=== PATIENT | male | born 1980 | race Caucasian/White ===

== ENCOUNTER 2021-04-26 09:07 | Emergency (ER) | payer SELFPAY ==
[~2021-04-26] VITALS: Ht 182.9 cm; Wt 87.2 kg
[~2021-04-26 09:07] MED LIST: CYCL10TA19 PO; HYDR-3165 PO; IBUP800T19 PO
[2021-04-26 09:36] VITALS: BP 140/94
[2021-04-26] MEDS ORDERED: TETRACAINE 0.5% OPHTH SOLUTION 4ML BOTTLE. OD ONE (10:00)
[2021-04-26] MEDS ORDERED: FLUORESCEIN 1MG EYE STRIP. OD ONE (10:00)
--- NOTE | 2021-04-26 10:00 | PHYS DOC ---
Past History Past Medical History: No Pertinent History Past Surgical History: No Surgical History Smoking: Greater than 1 pack/day Alcohol Use: Occasionally Drug Use: Marijuana General Adult EDM: Chief Complaint: EYE PROBLEMS HPI: HPI: Patient is a 40-year-old male that presents today with right a eye pain and swelling. Patient states that last night he felt like there was something in his eye, he woke up this morning and his eye was swollen shut with drainage coming out of it. Patient states he does not recall an injury or rubbing his eye or anything like that, patient does not wear glasses or contacts. Review of Systems: Review of Systems: Constitutional: Denies fever or chills Eyes: Right eye swelling and pain HENT: Denies nasal congestion or sore throat Respiratory: Denies cough or shortness of breath Cardiovascular: Denies chest pain or edema GI: Denies abdominal pain, nausea, vomiting, bloody stools or diarrhea : Denies dysuria Musculoskeletal: Denies back pain or joint pain Integument: Denies rash Neurologic: Denies headache, focal weakness or sensory changes Endocrine: Denies polyuria or polydipsia Lymphatic: Denies swollen glands Psychiatric: Denies depression or anxiety Current Medications: Current Meds: Current Medications Medications (Trade) Dose Ordered Sig/Juan Start Time Stop Time Status Last Admin Dose Admin Fluorescein Sodium (Ful-Cassandra 1mg) 1 strip 1X ONCE 04/26/21 10:00 04/26/21 10:01 UNV Tetracaine HCl (Tetracaine) 1 drop 1X ONCE 04/26/21 10:00 04/26/21 10:01 UNV Allergies: Allergies: Allergies Coded Allergies Type Severity Reaction Last Updated Verified No Known Drug Allergies 11/08/13 No Physical Exam: PE: Constitutional: Well developed, well nourished, no acute distress, non-toxic appearance. [] HENT: Normocephalic, atraumatic, bilateral external ears normal, oropharynx moist, no oral exudates, nose normal. [] Eyes: PERRLA, EOMI, conjunctive of the right eye is reddened, lids are swollen, [] Neck: Normal range of motion, no tenderness, supple, no stridor. [] Cardiovascular:Heart rate regular rhythm, no murmur [] Lungs & Thorax: Bilateral breath sounds clear to auscultation [] Abdomen: Bowel sounds normal, soft, no tenderness, no masses, no pulsatile masses. [] Skin: Warm, dry, no erythema, no rash. [] Back: No tenderness, no CVA tenderness. [] Extremities: No tenderness, no cyanosis, no clubbing, ROM intact, no edema. [] Neurologic: Alert and oriented X 3, normal motor function, normal sensory function, no focal deficits noted. [] Psychologic: Affect normal, judgement normal, mood normal. [] EKG: EKG: [] Radiology/Procedures: Radiology/Procedures: Michael lamp exam done, patient's eye eye was anesthetized with tetracaine 0.5% 3 drops, fluorescein was used to enhance the eye, Michael lamp was used to view any concerns, no abrasions noted in the eye. Eyelid was also inspected for any foreign bodies and nothing was seen Heart Score: C/O Chest Pain: N/A Risk Factors: Risk Factors: DM, Current or recent (<one month) smoker, HTN, HLP, family history of CAD, obesity. Risk Scores: Score 0 - 3: 2.5% MACE over next 6 weeks - Discharge Home Score 4 - 6: 20.3% MACE over next 6 weeks - Admit for Clinical Observation Score 7 - 10: 72.7% MACE over next 6 weeks - Early Invasive Strategies Course & Med Decision Making: Course & Med Decision Making Pertinent Labs and Imaging studies reviewed. (See chart for details) We will treat patient with for conjunctivitis patient is agreeable to the plan of care patient instructed to wash all bedding and any washcloths or anything that has contact with his eye on hot water. Patient verbalizes understanding and is acceptable with the plan of care] Millie Disclaimer: Millie Disclaimer: This electronic medical record was generated, in whole or in part, using a voice recognition dictation system. Departure Departure: Impression: Primary Impression: Acute bacterial conjunctivitis of right eye Disposition: HOME / SELF CARE / HOMELESS Condition: STABLE Referrals: PCP,NO (PCP) MAXWELL MCKNIGHT JOHN S DO Patient Instructions: Bacterial Conjunctivitis Additional Instructions: Erythromycin ointment apply a quarter of an inch of ointment into eye 6 times daily for the next 5 days Follow-up with your primary care physician or plant director given in the referral section Scripts Erythromycin Base (Erythromycin) 1 Gm Oint...g. 0.5 JANESSA OD 6XDAY for conjuctivitis for 5 Days, #1 MISC Prov: ANANDA SOUSA UNLOADING CHECKER 04/26/21 ANANDA SOUSA UNLOADING CHECKER Apr 26, 2021 10:00
[2021-04-26] MEDS ORDERED: ERYT1OIN3 OD (10:23)
== END 2021-04-26 10:30 | disposition home or self-care (01) ==
LOC: ER 09:07
DX: H10.31 Unspecified acute conjunctivitis, right eye (principal); F17.200 Nicotine dependence, unspecified, uncomplicated
CPT/HCPCS: 99283